=== PATIENT | female | born 1970 | race Caucasian/White ===

== ENCOUNTER → 2018-10-17 | Outpatient (CLI) | payer OTHER ==
[2015-08-09 15:42] VITALS: BP 109/68
[~2018-10-17] MED LIST: ATOM10CA PO; CLON0.12 PO; LITH300T3 PO; LURA20TA PO; THIO1CAP PO
--- NOTE | 2018-10-17 12:14 | RAD ---
Chest, 2 views, 10/17/2018: HISTORY: Bilateral rales The heart size and pulmonary vascularity are normal. No pulmonary infiltrate is seen. There is no evidence of pleural fluid. Mild scattered spurs are present in the spine. IMPRESSION: No acute cardiopulmonary abnormality is detected. Electronically signed by: Kevin Neff MD (10/17/2018 12:10 PM) [facility]
== END | disposition home or self-care (01) ==
LOC: RAD 10:44
PROVIDERS: ATTEND Obstetrics & Gynecology
DX: R09.89 Other specified symptoms and signs involving the circulatory and respiratory systems (principal)
CPT/HCPCS: 71046

== ENCOUNTER 2021-01-09 07:45 | Emergency (ER) | payer OTHER ==
[~2021-01-09] VITALS: Ht 165.1 cm; Wt 90.9 kg
[2021-01-09 07:45] VITALS: BP 151/88
--- NOTE | 2021-01-09 08:26 | ED.ADGEN ---
Past Medical History Past Medical History: Bipolar, Schizophrenia, Other Additional Past Medical Histor: ADHD Past Surgical History: Other Additional Past Surgical Histo: tumor removal neck Smoking Status: Current Every Day Smoker Alcohol Use: Rarely Drug Use: None Social History Narrative: UDS NEG 01/08/21 General Adult EDM: Chief Complaint: PSYCH EVALUATION HPI: HPI: Patient is a 50 year old female brought in by EMS from [facility]. Staff called because she was brought there last night and has been acting "manic". On arrival patient is asking for a cab voucher home. Patient is alert, but has some disorganized speech. Denies homicidal or suicidal ideations. History limited by patient cooperation. Review of Systems: Review of Systems: All other systems within normal limits except for as noted in the HPI Allergies: Allergies: Allergies Coded Allergies Type Severity Reaction Last Updated Verified No Known Drug Allergies 12/08/13 No Physical Exam: PE: Constitutional: Well developed, well nourished, no acute distress, non-toxic appearance. [] HENT: Normocephalic, atraumatic, bilateral external ears normal, nose normal. [ ] Eyes: PERRLA, conjunctiva normal, no discharge. [] Neck: No rigidity, supple, no stridor. [] Cardiovascular: Regular rate and rhythm, brisk cap refill [] Lungs & Thorax: Non labored symmetric respirations, no tachypnea or respiratory distress [] Abdomen: Soft, nondistended. Skin: Warm, dry, no erythema, no rash. [] Back: Unremarkable Extremities: No deformities, range of motion grossly intact, no lower extremity edema [] Neurologic: Alert and oriented X 3, no focal deficits noted. [] Psychologic: Disorganized thinking, denies SI and HI] Current Patient Data: Vital Signs: Vital Signs Date Time Temp Pulse Resp B/P (MAP) Pulse Ox O2 Delivery O2 Flow Rate FiO2 01/09/21 07:45 98.4 108 16 151/88 (109) 95 Room Air 98.4 EKG: EKG: [] Heart Score: Risk Factors: Risk Factors: DM, Current or recent (<one month) smoker, HTN, HLP, family history of CAD, obesity. Risk Scores: Score 0 - 3: 2.5% MACE over next 6 weeks - Discharge Home Score 4 - 6: 20.3% MACE over next 6 weeks - Admit for Clinical Observation Score 7 - 10: 72.7% MACE over next 6 weeks - Early Invasive Strategies Radiology/Procedures: Radiology/Procedures: [] Course & Med Decision Making: Course & Med Decision Making Just prior to PAT evaluation patient said she was wanting to leave and go back to her apartment. Declining any evaluation. Patient stating that she wants to leave was, call herself a cab, ambulated to the waiting room steady gait. Patient is alert and oriented including to situation and answers all questions appropriately. No justifiable indications to hold patient against her will, patient still denies SI and HI Dragon Disclaimer: Dragon Disclaimer: This electronic medical record was generated, in whole or in part, using a voice recognition dictation system. Departure Departure Impression: Primary Impression: Psychological assessment Disposition: 07 AMA/ELFRANCISCO JAVIER/LWDEQUAN Referrals: DANYEL RUTHERFORD (PCP) LIZBETH WHITE MD Jan 09, 2021 08:26
== END 2021-01-09 08:42 | disposition left against medical advice (07) ==
LOC: ER 07:45
DX: F30.9 Manic episode, unspecified (principal); F20.9 Schizophrenia, unspecified; F90.9 Attention-deficit hyperactivity disorder, unspecified type; F17.200 Nicotine dependence, unspecified, uncomplicated
CPT/HCPCS: 99283